=== PATIENT | male | born 1965 | race Caucasian/White ===

== ENCOUNTER 2017-08-24 07:11 | Day surgery (SDC) | payer BC ==
[~2017-08-24 07:11] MED LIST: Buffered Lidocaine 0.9% SYRIN* 5 ML/SYR SYRINGE INTRADERM ONE; Dexamethasone TAB* 4 MG PO ONE; DiMENhydriNATE IV* 50 MG/ML VIAL IV PUSH PRN; Famotidine IV* 10 MG/ML 2 ML (20 mg) IV ONE; Morphine INJ* 2 MG/ML 1 ML CARPUJECT IV PRN; Naloxone* 0.4 MG/ML 1 ML VIAL IV PRN; Ondansetron INJ* 2 MG/ML VIAL ONE; PROCHLORPERAZINE INJ 5 MG/ML 2 ML VIAL IV PRN; Scopolamine 1.5 mg* PATCH TRANSDERM PRN; fentaNYL* 50 MCG/ML 2 ML VIAL (100 MCG VIAL) IV PRN; oxyCODONE/Acetamin 5/325 MG* TAB PO PRN
[2017-08-24] MEDS ORDERED: Dexamethasone TAB* 4 MG ONE (07:51)
[2017-08-24] MEDS ORDERED: Ondansetron ODT TAB* 4 MG ONE (07:51)
[2017-08-24] MEDS ORDERED: Famotidine IV* 10 MG/ML 2 ML (20 mg) ONE (07:51)
[2017-08-24] MEDS ORDERED: KETAMINE HCL* 50 MG/ML 10 ML VIAL ONE (07:58)
[2017-08-24] MEDS ORDERED: Midazolam* 1 MG/ML 5 ML VIAL (5 MG) ONE (07:58)
[2017-08-24] MEDS ORDERED: fentaNYL* 50 MCG/ML 5 ML VIAL (250 MCG VIAL) ONE (07:58)
[2017-08-24] MEDS ORDERED: Bupivacaine 0.5% SDV PF* 30ML VIAL ONE (08:54)
[2017-08-24] MEDS ORDERED: Lidocaine 1% MPF wEPI 200,000* 30 ML SDV ONE (08:54)
[2017-08-24] MEDS ORDERED: Lidocaine 2% PF * 5 ML VIAL ONE (09:38)
[2017-08-24] MEDS ORDERED: Propofol* 500 MG/50 ML BTL ONE (09:38)
[2017-08-24] MEDS ORDERED: Ketorolac INJ* 30 MG/ML 1 ML VIAL ONE (09:38)
--- NOTE | 2017-08-24 10:14 | BRIEFOPN ---
Brief Operative Note - Surgery Procedures: OPERATIVE REPORT PRE-OP: Epigastric hernia POST-OP: Same PROCEDURE: Open repair with mesh of epigastric hernia SURGEON: MD Vinny ANESTHESIA:Local with MAC [place] ASST: none IVF:min EBL:min SPECIMEN:none DRAIN: none WOUND CLASS: One COMPLICATIONS: none TO PACU
[2017-08-24] MEDS ORDERED: oxyCODONE/Acetamin 5/325 MG* TAB ONE (10:37)
[2017-08-24 11:47] VITALS: BP 115/76
--- NOTE | 2017-08-25 06:37 | OP ---
DATE OF OPERATION: 08/24/17 - [facility] DATE OF : 63 SURGEON: Josr Casillas MD RENT AND MISCELLANEOUS REMITTANCE CLERK: None. ANESTHESIOLOGIST: Dr. Salvador. ANESTHESIA: Local with monitored anesthesia care. PRE-OP DIAGNOSIS: Epigastric hernia. POST-OP DIAGNOSIS: Epigastric hernia. OPERATIVE PROCEDURE: Open repair with mesh of an epigastric hernia. ESTIMATED BLOOD LOSS: Minimal. WOUND CLASSIFICATION: 1. SPECIMENS: None. COMPLICATIONS: None. DRAINS: None. DESCRIPTION OF PROCEDURE: Written informed consent was obtained, the abdomen was marked with indelible ink and preoperative antibiotics were administered. The patient was taken to the operating room and placed in the supine position. Sequential compression devices and a warming blanket were applied. The abdomen was prepped and draped in the usual sterile fashion. Time-out verification was completed. The palpable subcutaneous mass at the midline was 2 fingerbreadths above the umbilicus and this area was infiltrated with 1% lidocaine mixed with 0.5% Marcaine. A vertical incision of about 2 cm was made and carried down through the subcutaneous tissue. I identified and dissected what appeared to be preperitoneal fat extruding up through a fascial defect, which was no more than about 7 to 8 mm in diameter. I was not able to reduce this due to the narrow neck of the fascial defect and I excised this with cautery. The surrounding fascia appeared to be intact. I did not enter the peritoneal cavity. In light of the fact that the patient was quite young and active with a high intensity exercise regimen, I did proceed to place a small mesh plug made from polypropylene mesh, which I folded into a cone-shaped plug held together with a single 0 Vicryl suture placed in the preperitoneal space underneath the fascia. I then sutured the fascia together in two places with transverse oriented 0 Vicryl suture incorporating the mesh in the repair to assure that its correct positioning. Hemostasis was assured. The wound was then closed in layers with 3-0 and 4-0 Vicryl sutures. Steri-Strips and sterile dressings were applied. The patient tolerated the procedure well and was taken to the recovery room in stable condition. [id number]/CPS #: [id number] [facility]
[2017-08-27] MEDS ORDERED: Scopolamine PATCH Remove* 1 NOTE MISC PATCH OFF ONE (06:46)
== END 2017-08-24 12:03 | disposition home or self-care (01) ==
LOC: OR 07:11
PROVIDERS: ATTEND Surgery
DX: K43.9 Ventral hernia without obstruction or gangrene (principal)
CPT/HCPCS: A9270-GY; C1781; J1885; J2001; J2250; J2704; J3010; J8540

== ENCOUNTER 2018-02-21 12:06 | Emergency (ER) | payer OTHER ==
[2018-02-21] MEDS ORDERED: oxyCODONE/Acetamin 5/325 MG* TAB PO ONE (12:48)
[2018-02-21] MEDS ORDERED: Lidocaine 2% PF * 5 ML VIAL INJ ONE (12:59)
[2018-02-21] MEDS ORDERED: Cephalexin CAP* 500 MG PO ONE (12:59)
--- NOTE | 2018-02-21 14:22 | ED ---
Upper Extremity Pain - HPI Summary HPI Summary: [id number] patient presents with injury to left index finger prior to arrival. 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 Part of the tissue is removed and his bleeding. He denies numbness, tingling, weakness. Immunizations are up-to-date. Denies use of anticoagulants and no auto immune disorders. - History of Current Complaint Chief Complaint: EDLacSutureRecheck Stated Complaint: LEFT HAND LACERATION Time Seen by Provider: 02/21/18 12:12 Hx Obtained From: Patient, Family/River Rat - daughter - Allergies/Home Medications Allergies/Adverse Reactions: Allergies Allergy/AdvReac Type Severity Reaction Status Date / Time No Known Allergies Allergy Verified 02/21/18 12:16 Home Medications: Home Medications Pravastatin (NF) [Pravachol (NF)] 10 mg PO DAILY 02/21/18 [History Confirmed ] Sildenafil Citrate 100 mg PO SEE INSTRUCTIONS 02/21/18 [History Confirmed ] PMH/Surg Hx/FS Hx/Imm Hx Previously Healthy: Yes Endocrine/Hematology History: Denies: Hx Anticoagulant Therapy, Hx Blood Disorders, Autoimmune Disease Cardiovascular History: Denies: Other Cardiovascular Problems/Disorders Respiratory History: Denies: Other Respiratory Problems/Disorders GI History: Reports: Hx Gastroesophageal Reflux Disease - ok now Denies: Other GI Disorders Musculoskeletal History: Denies: Hx Rheumatoid Arthritis, Hx Osteoporosis, Other Musculoskeletal History Sensory History: Denies: Hx Contacts or Glasses, Hx Hearing Aid Opthamlomology History: Denies: Hx Contacts or Glasses Neurological History: Denies: Other Neuro Impairments/Disorders - Surgical History Surgery Procedure, Year, and Place: vasectomy, 2011 Hx Anesthesia Reactions: No - Immunization History Immunizations Up to Date: Yes Infectious Disease History: No Infectious Disease History: Denies: Hx of Known/Suspected MRSA, Traveled Outside the [place] in Last 30 Days - Social History 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 Lives: With Family - daughters Alcohol Use: Weekly Alcohol Amount: 2 per week Hx Substance Use: No Substance Use Type: Reports: None Hx Tobacco Use: No Smoking Status (MU): Never Smoked Tobacco Review of Systems Constitutional: Negative Positive: no symptoms reported Musculoskeletal: Other - pain Negative: Arthralgia, Decreased ROM, Edema Skin: Other - laceration, skin avulsion Neurological: Negative Psychological: Normal All Other Systems Reviewed And Are Negative: Yes Physical Exam Triage Information Reviewed: Yes Vital Signs On Initial Exam: Initial Vitals Temp Pulse Resp BP Pulse Ox 97.1 F 84 18 137/71 99 02/21/18 12:14 02/21/18 12:14 02/21/18 12:14 02/21/18 12:14 02/21/18 12:14 Vital Signs Reviewed: Yes Appearance: Positive: Well-Appearing, Well-Nourished, Pain Distress - moderate Skin: Positive: Warm, Skin Color Reflects Adequate Perfusion - active oozing bleeding from Lt index finger - pt has ice compression in place which is heling while elevating hand above head Head/Face: Positive: Normal Head/Face Inspection Eyes: Positive: EOMI ENT: Positive: Hearing grossly normal Respiratory/Lung Sounds: Positive: Breath Sounds Present Cardiovascular: Positive: Pulses are Symmetrical in both Upper and Lower Extremities Musculoskeletal: Positive: Strength/ROM Intact, Other - missing pad of flesh from Lt index finger - no vessels, nnerves, bone, tendons exposed Neurological: Positive: Normal, Sensory/Motor Intact, Alert, Oriented to Person Place, Time, CN Intact II-III Psychiatric: Positive: Normal Procedures - Laceration/Wound Repair 1 Location: upper extremity - Lt proximal portion of index finger -palmar aspect Description: Irregular - flap Anesthesia: Digital, 2.0%, Lido Length, Depth and Shape: 0.25cm through dermis 3mm Betadine Prep?: Yes Irrigated w/ Saline (ccs): 500 Laceration/Wound Explored: clean Closure: Single Layer Suture Type: Other - ethilon 5-0 Number of Sutures: 1 Layer Closure?: No Sterile Dressing Applied?: Yes - xeroform + gauze + coban compress - hemdyn stable - pt shannon well 2 Location: upper extremity - Lt middle portion of index finger, palmar aspect Description: Linear Anesthesia: Digital, 2.0%, Lido Length, Depth and Shape: 2cm x 3mm Betadine Prep?: Yes Irrigated w/ Saline (ccs): 500 Laceration/Wound Explored: clean Closure: Single Layer Suture Type: Other - ethilon 5-0 Number of Sutures: 5 Layer Closure?: No Sterile Dressing Applied?: Yes - xeroform + gauze + coban compress - hemdyn stable - pt shannon well 3 Location: upper extremity - Lt distal index finger, avulsion Description: Irregular - avulsion - complete tissue of pad missing Anesthesia: Digital, 2.0%, Lido Length, Depth and Shape: 1.25cm across Betadine Prep?: No Irrigated w/ Saline (ccs): 500 Laceration/Wound Explored: clean Number of Sutures: 0 Layer Closure?: No Sterile Dressing Applied?: Yes - xeroform + gauze + coban compress - hemdyn stable - pt shannon well Diagnostics - Vital Signs Vital Signs Temp Pulse Resp BP Pulse Ox 02/21/18 12:51 18 02/21/18 12:14 97.1 F 84 18 137/71 99 - Laboratory Lab Statement: Any lab studies that have been ordered have been reviewed, and results considered in the medical decision making process. Course/Dx - Course Course Of Treatment: XR: distal tuft fx - no dislocation. Spoke w/ Dr. Santillan - irrigate, anbx and xerform dressing - f/u tomorrow. Pt aware of wound care and f/u plan as well as danger s/sx of when to return to ED - Diagnoses Provider Diagnoses: Avulsion, finger tip, Open fracture of finger of left hand, Finger laceration Discharge - Sign-Out/Discharge Documenting (check all that apply): Patient Departure - Discharge Plan Condition: Stable Disposition: HOME Prescriptions: Cephalexin CAP* [Keflex CAP*] 500 mg PO QID #39 cap HYDROcodone/ACETAMIN 5-325 MG* [Trimont 5-325 TAB*] 1 tab PO Q6H PRN #20 tab MDD 4 PRN Reason: Pain Ibuprofen TAB* [Motrin TAB* 600 MG] 600 mg PO Q6H PRN #20 tab PRN Reason: Pain Patient Education Materials: Skin Avulsion (ED), Finger Fracture (ED), Care For Your Stitches (ED), Finger Laceration (ED) Referrals: Abelardo Guerra MD [Medical Doctor] - Additional Instructions: Keep Dressing clean and dry and in place until seen by orthopedics tomorrow. Call in the morning to schedule an appointment. For your lacerations with suture repair, you gently wash wound with soap and water, rinse well and pat dry with clean cloth. Reapply triple antibiotic ointment and clean gauze dressing. Continue this daily until sutures are removed. However touch base with orthopedics about how to care for the avulsion moving forward. Sutures will need to be removed in 10-14 days - ask orthopedics about removal at their discretion. Rest, ice, elevate for pain, swelling and bleeding control. You may also alternate between ibuprofen and norco for pain control - medications have been sent to the pharmacy. * If you develop redness, swelling, streaking, purulent drainage, fevers or chills, bleeding through wound dressing despite compression and elevation, seek medical attention sooner or return to the emergency department. - Billing Disposition and Condition Condition: STABLE Disposition: Home
[2018-02-21 14:45] VITALS: BP 124/84
== END 2018-02-21 14:44 | disposition home or self-care (01) ==
LOC: ED 12:06
DX: S62.631B Displaced fracture of distal phalanx of left index finger, initial encounter for open fracture (principal); W23.0XXA Caught, crushed, jammed, or pinched between moving objects, initial encounter; Y92.9 Unspecified place or not applicable; K21.9 Gastro-esophageal reflux disease without esophagitis
CPT/HCPCS: 12001; 73140; 99282; A9270-GY

== ENCOUNTER 2018-03-05 07:32 | Day surgery (SDC) | payer OTHER ==
--- NOTE | 2018-02-25 16:00 | HP ---
PREOPERATIVE HISTORY AND PHYSICAL EXAM: DATE OF SURGERY/ADMISSION: 03/05/18 DATE OF OFFICE VISIT/ENCOUNTER: 02/22/18 ATTENDING SURGEON: Ameena salazar MD* (dictated by YAYA De La Fuente). PROCEDURE: Left index finger revision amputation. CHIEF COMPLAINT: Partial amputation, left index finger. HISTORY OF PRESENT ILLNESS: This is a 52-year-old male, who injured his left index finger on 02/21/18. 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 He was seen at the [facility] Emergency Room and had the wound sutured and cleaned. He was placed on Keflex. He is using ibuprofen 600 mg for pain. He denies any other injury. He is ambidextrous. After evaluation by Dr. Salazar , he has consented to proceed with surgical intervention in the form of a revision amputation. PAST MEDICAL HISTORY: Hypercholesterolemia. PAST SURGICAL HISTORY: 1. Hernia repair. 2. Vasectomy. MEDICATIONS: Current Medications: 1. Anusol-HC 2.5% topical twice as needed. 2. Famciclovir 500 mg 3 tabs once daily p.r.n. 3. Ibuprofen 600 mg 1 tab 3 times a day p.r.n. pain. 4. Pravastatin sodium 10 mg daily. 5. Viagra 100 mg p.r.n. ALLERGIES: No known drug allergies. FAMILY MEDICAL HISTORY: Heart disease, breast cancer, gout. SOCIAL HISTORY: The patient is employed at [employer] in [employer]. He denies regular tobacco use. He occasionally smokes a cigar. He denies recreational drug use. He drinks alcohol on occasion. REVIEW OF SYSTEMS: Negative for general, cephalic, cardiovascular, respiratory , GI, , other musculoskeletal, integumentary, endocrine, neurologic, and hematologic symptoms. Infectious Disease: Negative for MRSA, hepatitis C, HIV. PHYSICAL EXAMINATION GENERAL: A well-developed, well-nourished 52-year-old male, in no acute distress. VITAL SIGNS: Height 6 feet 2 inches, weight 218 pounds, pulse rate 80, blood pressure 142/90. HEENT: Normocephalic, atraumatic. Pupils are equal, round, and reactive to light and accommodation. Extraocular movements are intact. Throat is clear. NECK: Supple. No palpable lymph nodes. PULMONARY: Lungs are clear to auscultation bilaterally. No wheezes, rales, or rhonchi. CARDIOVASCULAR: Regular rate and rhythm. S1 and S2. No murmurs, rubs or gallops. No edema. ABDOMEN: Positive bowel sounds. Soft, nontender. MUSCULOSKELETAL: On exam of his left index finger, he has a partial amputation/ laceration on the volar aspect of the finger with missing skin at the tip. The wound is clean. There is no sign of infection. The nail is mostly intact. NEUROLOGIC: Alert and oriented x3. Cranial nerves II through XII are intact. Sensation is intact to light touch. IMPRESSION: Partial amputation, left index finger. PLAN: The patient is scheduled to undergo a revision amputation on 03/05/18. He will follow up in the office 10 days after surgery for recheck. He has hydrocodone as prescribed from the emergency department, which he will use for postoperative pain management and this will be refilled if needed. He will also continue using ibuprofen 600 mg up to 3 times a day. YAYA DE LA FUENTE [id number]/CPS #: [id number] [facility]
[~2018-03-05 07:32] MED LIST changes: +Dexamethasone TAB* 4 MG ONE; +Famotidine IV* 10 MG/ML 2 ML (20 mg) ONE; +Lactated Ringers 1000 ML Bag* 1,000 ML IV SCH; -Morphine INJ* 2 MG/ML 1 ML CARPUJECT IV PRN; +Morphine VIAL* 4 MG/ML VIAL (1 ml vial) IV PRN; -Ondansetron INJ* 2 MG/ML VIAL ONE; +Ondansetron ODT TAB* 4 MG ONE; +Ondansetron TAB* 4 MG PO ONE; -Scopolamine 1.5 mg* PATCH TRANSDERM PRN
[2018-03-05] MEDS ORDERED: fentaNYL* 50 MCG/ML 2 ML VIAL (100 MCG VIAL) ONE (08:16)
[2018-03-05] MEDS ORDERED: Midazolam* 1 MG/ML 5 ML VIAL (5 MG) ONE (08:17)
[2018-03-05] MEDS ORDERED: Lidocaine 1% INJ* 10 MG/ML 30 ML SDV ONE (08:38)
[2018-03-05] MEDS ORDERED: KETAMINE HCL* 50 MG/ML 10 ML VIAL ONE (09:11)
[2018-03-05] MEDS ORDERED: Ketorolac INJ* 30 MG/ML 1 ML VIAL ONE (09:44)
[2018-03-05] MEDS ORDERED: Propofol* 10 MG/ML 20 ML BTL ONE (09:44)
[2018-03-05] MEDS ORDERED: Lidocaine 2% PF * 5 ML VIAL ONE (09:44)
[2018-03-05 09:55] VITALS: BP 142/96
--- NOTE | 2018-03-05 21:57 | OP ---
DATE OF OPERATION: 03/05/18 [facility] DATE OF : 63 SURGEON: Ameena Salazar M.D. OVERLAY OPERATOR: YAYA Amado ANESTHESIA: Local MAC. PRE-OP DIAGNOSIS: Partial amputation of the left index finger. POST-OP DIAGNOSIS: Partial amputation of the left index finger. OPERATIVE PROCEDURE: Revision amputation of the left index finger with a V-Y advancement flap. ESTIMATED BLOOD LOSS: Zero. TOURNIQUET TIME: Approximately 20 minutes. INDICATION FOR PROCEDURE: Murali is a 52-year-old male who was using a pasta machine and actually got his left index finger caught in the machine and suffered a partial amputation of the tip of his index finger. He presents for revision amputation with an advancement flap. DESCRIPTION OF PROCEDURE: The patient was brought to the operating room and was given a digital block anesthetic with 10 cc of 1% plain lidocaine. The skin of the left upper extremity was prepped and draped in the usual sterile fashion. The finger was exsanguinated and a tourniquet was placed. There was a laceration proximal to the amputation and the sutures from this were removed and then the laceration was extended distally and also on to the radial side, thus creating an advancement flap. The subcutaneous tissue was elevated and we were able to advance the flap almost to complete coverage of the defect. The flap was closed with 4-0 nylon suture in a Y-shape and this was done after irrigating the wound. The wound was dressed with Xeroform, 4x4, Webril, and Coban. The patient tolerated the procedure well and was brought to the recovery room in good condition. [id number]/[facility] #: [id number] [facility]
== END 2018-03-05 10:18 | disposition home or self-care (01) ==
LOC: OREAST 07:32
PROVIDERS: ATTEND Orthopaedic Surgery
DX: S61.211A Laceration without foreign body of left index finger without damage to nail, initial encounter (principal); E78.5 Hyperlipidemia, unspecified; W31.89XA Contact with other specified machinery, initial encounter; Y92.000 Kitchen of unspecified non-institutional (private) residence as the place of occurrence of the external cause
CPT/HCPCS: A9270-GY; J1885; J2250; J2704; J3010; J8540